=== PATIENT | male | born 1980 | race Caucasian/White ===

== ENCOUNTER → 2016-06-11 | Outpatient (CLI) | payer BC, MEDICAID | LOC: FIMAGING 10:31 | PROVIDERS: ATTEND Internal Medicine | DX: M50.323 Other cervical disc degeneration at C6-C7 level (principal); M50.20 Other cervical disc displacement, unspecified cervical region ==

== ENCOUNTER → 2016-09-26 | Outpatient (CLI) | payer BC, MEDICAID | LOC: FIMAGING 11:33 | PROVIDERS: ATTEND Physician Assistant Surgical | DX: Z09 Encounter for follow-up examination after completed treatment for conditions other than malignant neoplasm (principal) ==